=== PATIENT | female | born 1990 | race Caucasian/White ===

== ENCOUNTER 2016-12-02 08:03 | Emergency (ER) | payer SELFPAY ==
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
[2016-12-02] MEDS ORDERED: Nicotine Inhaler* 10 MG AMP INH ONE ×2 (10:19→14:43)
[2016-12-02 10:22] LABS: Hematocrit 42 % (35-47); Hemoglobin 13.5 g/dl (12.0-16.0); Mean Corpuscular HGB Conc 32 g/dl (31-36); Mean Corpuscular Hemoglobin 28 pg (27-31); Mean Corpuscular Volume 87 fL (80-97); Mean Platelet Volume 9 um3 (7.4-10.4); Red Blood Count 4.88 10^6/ul (4.0-5.4); Red Cell Distribution Width 15 % (10.5-15); White Blood Count 11.2 10^3/ul (3.5-10.8)
[2016-12-02 10:47] LABS: ALT 31 U/L (7-52); AST 27 U/L (13-39); Albumin 4.3 g/dL (3.2-5.2); Alkaline Phosphatase 34 U/L (34-104); Anion Gap 9 mmol/L (2-11); BUN/Creatinine Ratio 9.3 (8-20); Blood Urea Nitrogen 8 mg/dL (6-24); CO2 Carbon Dioxide 23 mmol/L (22-32); Calcium 9.5 mg/dL (8.6-10.3); Chloride 116 mmol/L (101-111); EGFR African American 104.3 (>60); EGFR Non-African American 81.1 (>60); Globulin 3.4 g/dL (2-4); Glucose 105 mg/dL (70-100); Potassium 4.1 mmol/L (3.5-5.0); Sodium 148 mmol/L (133-145); Total Protein 7.7 g/dL (6.4-8.9)
[2016-12-02] MEDS ORDERED: Mouth Piece, Nicotine* 1 EACH CARTRIDGE ONE (10:57)
[2016-12-02 11:03] LABS: Acetaminophen < 15 mcg/mL; Alcohol < 10 mg/dL (<10); Salicylate < 2.50 mg/dL (<30)
[2016-12-02 11:10] LABS: TSH (Thyroid Stimulating Horm) 0.82 mcIU/mL (0.34-5.60)
[2016-12-02] MEDS ORDERED: Acetaminophen TAB* 325 MG PO ONE (11:21)
[2016-12-02] MEDS ORDERED: Ketorolac INJ* 60 MG/2 ML VIAL IM ONE (11:21)
[2016-12-02] MEDS ORDERED: NS 0.9% 1000 ML* 1,000 ML IV ONE (11:31)
--- NOTE | 2016-12-02 12:07 | RAD ---
Indication: Bilateral wrist injury and pain. 3 views of the right wrist and 3 views of left wrist are reviewed. The left wrist demonstrates no fracture or dislocation. No other bone or joint abnormalities identified. The right wrist demonstrates no fracture. No other bone or joint abnormality is noted. IMPRESSION: No fracture of either wrist is noted.
--- NOTE | 2016-12-02 12:07 | RAD ---
Indication: Left hand pain. 2 views of left hand demonstrates no fracture. No other bone or joint abnormality is identified. IMPRESSION: No fracture of left hand is noted.
--- NOTE | 2016-12-02 12:16 | RAD ---
INDICATION: Prolonged internal rotation with resisted movements. TECHNIQUE: 4 views of both shoulders were obtained. FINDINGS: The bones are in normal alignment. No fracture is seen. Joint spaces appear maintained. IMPRESSION: NO EVIDENCE OF FRACTURE.
[2016-12-02 15:56] VITALS: BP 111/68
== END 2016-12-02 15:40 | disposition home or self-care (01) ==
LOC: ED 08:03
DX: R10.9 Unspecified abdominal pain (principal); F17.210 Nicotine dependence, cigarettes, uncomplicated
CPT/HCPCS: 36415; 80053; 80320; 80329; 84443; 84702; 85025; 96372; 99285; A9270-GY; G0480; J1885